=== PATIENT | male | born 1985 | race Caucasian/White ===

== ENCOUNTER 2022-06-03 21:22 | Emergency (ER) | payer OTHER ==
[2022-06-03 21:30] VITALS: BP 127/74; PULSE 70; RESP 20; TEMP 98.3; BMI 31.7
[2022-06-03 22:08] LABS: EPI CELLS 0 /uL (0-25.1); HYALINE CASTS 0 /uL (0-3.1); PH,URINE 5.5 (5.0-8.0); URINE APPEARANCE CLOUDY; URINE BACTERIA 2007 /uL (0-1359); URINE BILIRUBIN NEGATIVE (NEGATIVE); URINE COLOR YELLOW; URINE GLUCOSE (UA) NEGATIVE (NEGATIVE); URINE KETONE NEGATIVE (NEGATIVE); URINE LEUK ESTERASE 3+ (NEGATIVE); URINE NITRITE NEGATIVE (NEGATIVE); URINE PROTEIN 1+ (NEGATIVE); URINE RBC 3586 /uL (0-23.9); URINE UROBILINOGEN 0.2 mg/dL (0.2-1.0); URINE WBC 1157 /uL (0-25.8)
[2022-06-03] MEDS ORDERED: SULFAMETHOXAZOLE/TRIMETHOPRIM 800MG/160MG D.S. TABLET PO ONE (22:38)
[2022-06-03] MEDS ORDERED: SULFAMETHOXAZOLE/TRIMETHOPRIM 800MG/160MG D.S. TABLET ONE (22:50)
== END 2022-06-03 23:22 | disposition home or self-care (01) ==
LOC: JER 21:22
DX: N39.0 Urinary tract infection, site not specified (principal)
CPT/HCPCS: 36415; 81003; 87086; 87186; 87491; 87591; 99283-25

== ENCOUNTER 2022-08-21 12:10 | Emergency (ER) | payer OTHER ==
[2022-08-21 12:28] VITALS: BP 114/58; PULSE 87; RESP 20; TEMP 100.1; BMI 30.2
[2022-08-21] MEDS ORDERED: SODIUM CHLORIDE 0.9% 500 ML INFUS.BAG IV ONE ×2 (12:53→13:29)
[2022-08-21] MEDS ORDERED: ONDANSETRON 4 MG/2 ML VIAL IVPUSH ONE (13:17)
[2022-08-21] MEDS ORDERED: ONDANSETRON 4 MG/2 ML VIAL ONE (13:37)
[2022-08-21 13:53] LABS: HEMATOCRIT 53.5 % (35.4-49); MCH 29.1 pg (25.7-33.7); MCHC 33.6 g/dl (32.0-35.9); MEAN CELL VOLUME 86.5 fl (80-96); MEAN PLT VOLUME 7.4 fl (7.5-11.1); PLATELET COUNT 278 10^3/uL (134-434); RBC 6.18 M/mm3 (4.00-5.60); RDW 15.3 % (11.9-15.9); WHITE BLOOD COUNT 10.9 K/mm3 (4.0-10.0)
[2022-08-21 14:10] LABS: ALBUMIN 4.6 g/dl (3.4-5.0); CALCIUM 9.9 mg/dL (8.5-10.1)
[2022-08-21 14:13] LABS: CREATININE 1.2 mg/dL (0.55-1.3)
[2022-08-21 14:15] LABS: BILIRUBIN,TOTAL 0.8 mg/dL (0.2-1); TOT PROT 7.8 g/dl (6.4-8.2)
[2022-08-21 14:21] LABS: ANISOCYTOSIS 0; HELMET CELLS 0; HOWELL-JOLLY BODIES 0; MACROCYTOSIS 0; OVALOCYTE 0; ROULEAU 0; SICKELED CELLS 0; TARGET CELLS 0; TEAR DROP CELLS 0; TOXIC GRANULATION 0
[2022-08-21] MEDS ORDERED: ACETAMINOPHEN INJECTION 100 ML IVPB ONE (14:41)
[2022-08-21] MEDS ORDERED: ACETAMINOPHEN 325 MG TABLET (FP) PO ONE (14:42)
[2022-08-21] MEDS ORDERED: ACETAMINOPHEN 325 MG TABLET (FP) ONE ×2 (14:43→14:46)
== END 2022-08-21 15:28 | disposition home or self-care (01) ==
LOC: JER 12:10
PROC: 3E0333Z Introduction of Anti-inflammatory into Peripheral Vein, Percutaneous Approach (ICD-10-PCS; principal; 2022-08-21)
PROC: 3E033GC Introduction of Other Therapeutic Substance into Peripheral Vein, Percutaneous Approach (ICD-10-PCS; 2022-08-21)
DX: R11.2 Nausea with vomiting, unspecified (principal); R19.7 Diarrhea, unspecified; R50.9 Fever, unspecified
CPT/HCPCS: 0241U-QW; 36415; 80053; 84443; 84484; 85025; 93005; 93010; 99284-25